=== PATIENT | female | born 1975 | race Caucasian/White ===

== ENCOUNTER → 2021-08-21 08:40 | Outpatient (BNVA) | payer OTHER, SELFPAY | PROVIDERS: Family Provider Nurse Practitioner Family; PCP Nurse Practitioner Family; Visit Provider Internal Medicine | DX: E04.2 Nontoxic multinodular goiter (principal); E05.90 Thyrotoxicosis, unspecified without thyrotoxic crisis or storm | CPT/HCPCS: 83516; 84439; 84443; 84480; 86376; 86800 ==

== ENCOUNTER → 2021-09-01 09:08 | Outpatient (BNVA) | payer OTHER, SELFPAY | PROVIDERS: Family Provider Nurse Practitioner Family; PCP Nurse Practitioner Family; Visit Provider Internal Medicine | DX: E04.2 Nontoxic multinodular goiter (principal); E05.90 Thyrotoxicosis, unspecified without thyrotoxic crisis or storm | CPT/HCPCS: 84439; 84443; 84480 ==

== ENCOUNTER 2021-09-22 10:19 | Outpatient (CLI) | payer OTHER, SELFPAY ==
--- NOTE | 2021-09-21 10:29 | NM_ITS ---
WS: [id number] NUCLEAR MEDICINE THYROID UPTAKE AND SCAN HISTORY: E05.90 - Thyrotoxicosis. COMPARISON: None available. Radionucleotide: 119 uCi Iodine-123 sodium iodide capsule. Oral ingestion. Imaging performed at 24 hours post ingestion of capsule. Marker placed over the chin and suprasternal notch. Heterogeneous radiotracer uptake throughout the thyroid. More focal hyperfunctioning nodule in the lo wer pole of the LEFT thyroid. There is a more hypofunctioning nodule in the mid to lower RIGHT thyroi d. The RIGHT thyroid does appear to extend inferiorly towards the substernal notch. Possible mildly h yperfunctioning nodule in the superior RIGHT pole. Thyroid uptake at 24 hours: 24%. (Normal uptake at 24 hours 10-30%). NM/NM thyroid uptake multi [id number] IMPRESSION: 1. Normal thyroid uptake at 24 hours. 2. Mildly hyperfunctioning nodule inferior pole LEFT thyroid, superior pole RI GHT thyroid and hypofunctioning nodules in the mid to lower pole of the RIGHT t hyroid. Recommend follow-up ultrasound to evaluate the suspected nodules in eac h gland.
== END 2021-09-22 10:20 | disposition home or self-care (01) ==
PROVIDERS: PCP Nurse Practitioner Family; Visit Provider Internal Medicine
DX: E05.90 Thyrotoxicosis, unspecified without thyrotoxic crisis or storm (principal); E04.2 Nontoxic multinodular goiter
CPT/HCPCS: 78014; A9516

== ENCOUNTER 2021-10-02 11:08 | Outpatient (CLI) | payer OTHER, SELFPAY ==
[2021-10-02 12:25] LABS: Free T4 Free Thyroxine 1.82 ng/dL (0.82-1.77); Thyroid Stimulating Hormone 0.01 uIU/mL (0.27-4.20)
[2021-10-03 09:17] LABS: T3 Total 221 ng/dL (76-181)
== END 2021-10-02 11:09 | disposition home or self-care (01) ==
PROVIDERS: PCP Family Medicine; Visit Provider Internal Medicine
DX: E05.90 Thyrotoxicosis, unspecified without thyrotoxic crisis or storm (principal); E04.2 Nontoxic multinodular goiter; E04.9 Nontoxic goiter, unspecified
CPT/HCPCS: 84439; 84443; 84480

== ENCOUNTER 2021-10-24 16:17 | Inpatient (IN) | payer OTHER, SELFPAY ==
[2021-10-18 15:01] VITALS: BMI 33.5
[2021-10-19 11:30] LABS: Adenovirus Not Detected (NOT DETECT); Chlamydia Pneumoniae Not Detected (NOT DETECT); Coronavirus 229E,HKU1,NL63,OC4 Not Detected (NOT DETECT); Human Metapneumovirus Not Detected (NOT DETECT); Human Rhinovirus/Enterovirus Not Detected (NOT DETECT); Influenza A Not Detected (NOT DETECT); Influenza A H1 Not Detected (NOT DETECT); Influenza A H1-2009 Not Detected (NOT DETECT); Influenza A H3 Not Detected (NOT DETECT); Influenza B Not Detected (NOT DETECT); Mycoplasma Pneumoniae Not Detected (NOT DETECT); Parainfluenza Virus Type 1 Not Detected (NOT DETECT); Parainfluenza Virus Type 2 Not Detected (NOT DETECT); Parainfluenza Virus Type 3 Not Detected (NOT DETECT); Parainfluenza Virus Type 4 Not Detected (NOT DETECT); Respiratory Syncytial Virus A Not Detected (NOT DETECT); Respiratory Syncytial Virus B Not Detected (NOT DETECT); SARS-COV-2 Not Detected (NOT DETECT)
[2021-10-24] VITALS (18 sets, daily range): BP systolic 107–153; BP diastolic 63–99; PULSE 61–86; RESP 16–26; TEMP 36.2–37.1; O2SAT 90–99
[2021-10-24] MEDS: sodium chloride 0.9% 1,000 ML 30 ML IV (11:14)
--- NOTE | 2021-10-24 11:51 | W.PM.OPSUD ---
Surgery/Procedure H&P Update DATE OF PROCEDURE: October 24, 2021 DATE H&P PERFORMED: 10/06/21 PRIMARY INDICATION FOR PROCEDURE: Hyperthyroidism PLANNED PROCEDURE: Operation Date: 10/24/21 12:00 Proposed Procedures p Total Thyroidectomy(Not Applicable) - Herve Garner MD Related Problem List Diagnoses (1) Hyperthyroidism:
[2021-10-24] MEDS: triamcinolone 40 mg/mL SDV IM (13:28)
[2021-10-24] MEDS: thrombin 5,000 unit SDV 5000 UNIT XX (13:28)
[2021-10-24] MEDS: ceFAZolin 1,000 mg SDV 1000 MG IRRIGATION (13:32)
--- NOTE | 2021-10-24 13:49 | ANES.PREANE2 ---
Pre-Anesthetic Assessment Height/Weight: Height 1.75 m Weight 102.965 kg Temp Pulse Resp BP Pulse Ox 97.2 F L 65 16 137/87 99 10/24/21 10:53 10/24/21 10:53 10/24/21 10:53 10/24/21 10:53 10/24/21 10:53 Operation Date: 10/24/21 12:00 Proposed Procedures p Total Thyroidectomy(Not Applicable) - Herve Garner MD Familial anesthetic complications: None Was Beta Madelaine taken within 24 hours: Yes Was Clonidine taken within 24 hours: N/A Last intake: Intake Last Liquid Date 10/23/21 Last Liquid Time 23:30 Last Solid Date 10/23/21 Last Solid Time 22:30 Social Tobacco and No alcohol Exam alert, oriented x 3, clear to auscultation bilaterally and regular rate & rhythm Airway Submandibular: within normal limits Cervical ROM: within normal limits Mallampati: Class III Dentition: full Comments: Comments: small mouth opening Pulmonary Chronic Obstructive Pulmonary Disease Metabolic Morbid Obesity and Thyroid Disease (hyper) Anesthetic Plan ASA status: 3 Anesthesia: General Risk of > 500 ml blood loss (7ml/kg in children): No Medications/Allergies Home Medications Medication Instructions Recorded Confirmed Last Taken Type potassium iodide 1 gram/mL oral 2 drp PO TID 10/18/21 10/18/21 10/23/21 23:00 History solution (SSKI) prednisone 20 mg tablet 20 mg PO BID 10/18/21 10/18/21 10/23/21 23:00 History propranolol 10 mg tablet 20 mg PO QID 10/18/21 10/18/21 10/24/21 05:30 History Allergies Allergy/AdvReac Type Severity Reaction Status Date / Time No Known Allergies Allergy Verified 10/17/21 08:43 Current Medications Generic Name Dose Route Start Last Admin Trade Name Freq PRN Reason Stop Dose Admin Sodium Chloride 1,000 mls @ 30 mls/hr 10/24/21 11:15 10/24/21 11:14 Sodium Chloride 0.9% IV 10/25/21 11:14 30 mls/hr .Q24H MEHDI Administration PFSH Anesthesia Medical History FHx: thyroid disease High cholesterol Surgical History H/O shoulder surgery H/O tubal ligation Family History Father Cancer Mother Cancer Social History Smoking and tobacco status: current every day smoker Quit status (tobacco): not considering quitting Second hand smoke exposure: Yes Smoking risk assessment/counseling performed?: Yes Alcohol intake: never Desire information about alcohol rehabilitation?: No Counseling given: No Desire information about substance/drug rehabilitation?: No Counseling given: No Adopted: No Caregiver/support person: No Lives independently: Yes Household members: none Housing: House Marital status: Number of children: 3 Highest education level completed: Some College, No Degree service: No Current occupational status: employed History of recent travel: No Data Anesthesia Cardiac Studies: No Data to Display
[2021-10-24] MEDS: fluorescein 1 mg Strip XX ×2 (14:26→15:21)
[2021-10-24] MEDS: EPINEPHrine 1 mg/mL INJ 5 MG XX ×2 (14:26→15:20)
[2021-10-24] MEDS: neomycin-poly-bacitracin oint 28 gm 1 APPLIC TOPICAL (15:52)
--- NOTE | 2021-10-24 16:26 | PM.OP2 ---
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
--- NOTE | 2021-10-24 16:29 | P.OP_ITS ---
Operative Report Date of procedure: October 24, 2021 Pre-op diagnosis: Toxic Multinodular Goiter with Hyperthyroidism with intolerance of medical therapy Post-op diagnosis: same Post-op diagnosis: Same Post-op findings: Multinodular goiter Procedure done: Total thyroidectomy Implants: None Specimens removed/disposition: Right and Left thyroid lobes Pathology: Right and Left thyroid lobes Surgeon: Herve Garner Anesthesia: General Estimated blood loss (mL): 100 IV fluids (mL): 100 Urine output (mL): 150 Complications: None Findings: Multinodular goiter - Bilateral Intact recurrent laryngeal nerves bilaterally Parathyroid glands X 4 identified and preserved in place Condition: stable Disposition: ICU Brief History: 46 yo wf with a h/o toxic multinodular goiter with hyperthyroidism who has been intolerant of medical therapy and who declines HANNA. The patient desires surgical therapy. Procedure: The patient was identified in the preoperative holding area and was taken to the operating table and placed on the operating table in the supine position. Anesthesia was obtained with general endotracheal anesthesia with the Nirvana nerve monitoring endotracheal tube. A horizontal skin incision was drawn out on the patient's anterior neck 2 fingerbreadths above the sternal notch. The incision thus drawn was injected with local anesthesia and the patient was then prepped and draped in the usual sterile fashion. The incision was then made with a 15 blade and the dissection proceeded into the deep tissues with a combination of electrocautery and blunt dissection. The dissection proceeded down through the subcutaneous fat until the strap muscles were identified. The strap muscles were then divided in the sagittal plane in the avascular midline. The thyroid gland was then exposed and attention was turned to the left thyroid lobe. The Wheatley retractor was placed in the wound and the dissection proceeded in a circumferential fashion around the left thyroid lobe. The thyroid isthmus was dissected off of the trachea and was divided with the harmonic scalpel. The Nirvana nerve monitoring hemostat was used to stimulate the left vagus om the carotid sheath and the circuit was found to be intact. At this point the dissection proceeded in a circumferential fashion and initially inferiorly as the left thyroid lobe was rotated medially exposing the tracheoesophageal groove to the operating surgeon. The thyrothymic horn was dissected off of the thyroid and was reflected inferiorly preserving the inferior parathyroid in place. The recurrent nerve was identified and was t raced superiorly to Wright's ligament. Wright's ligament was dissected then divided with microbipolar cautery and the superior pole vessels were then individually dissected free, clipped with ligaclips and divided. The left Vagus nerve was again stimulated in the carotid sheath and the left recurrent laryngeal nerve circuit was again found to be intact. At this point the left thyroid lobe was removed and attention was turned to the right thyroid lobe where a similar procedure was performed. At this point the wounds were inspected for hemostasis which was found to be adequate. The patient had four parathyroids that were identified and preserved in place. The recurrent laryngeal nerves were identified and preserved in place bilaterally. At the end of the procedure the vagus nerve was stimulated in the right and left carotid sheaths and the circuit was found to be intact bilaterally. At this point a round NING drain was placed in the wound and the wound was closed in layers with interrupted 4-0 and 5-0 Monocryl sutures in the subcutaneous tissues. A subcuticular suture was used to close the skin with 5-0 Monocryl suture. Dermabond was placed on the wound as well as Steri-Strips. At this point the procedure was terminated and control of the patient was returned to anesthesia where she underwent an uneventful reversal of anesthesia and extubation and was taken to the recovery room in stable condition. There were no operative or anesthetic complications
--- NOTE | 2021-10-24 17:00 | ANE.PACU2 ---
Inpatient post-anesthesia follow up: Airway intact: Yes Vital signs: Temperature 98.8 F Pulse Rate 62 Respiratory Rate 19 Blood Pressure 125/81 Pulse Oximetry 92 Oxygen Delivery Me thod Room Air Oxygen Flow Rate 3 Fraction of Inspir ed Oxygen Hydration adequate: Yes Nausea and vomiting: No Pain level: 1 Mental status: Baseline
[2021-10-24 17:11] LABS: Parathyroid Hormone 5.4 pg/mL (15-65)
[2021-10-24 17:16] LABS: Calcium 9.2 mg/dL (8.5-10.5)
[2021-10-24] MEDS: HYDROcodone-acetaminophen 5-325 mg Tablet 1 TAB PO (17:18)
[2021-10-24] MEDS: docusate sodium 100 mg Capsule PO (17:19)
[2021-10-24] MEDS: lactated ringers 1,000 ML 100 ML IV (17:19)
[2021-10-24] MEDS: calcium carb-vit d 500mg-200unit 1 Tablet 1 EACH PO (17:22)
--- NOTE | 2021-10-24 17:46 | PM.CONSULT ---
Providers/Reason For Consult Consulting Physician/Specialty*: Hospitalist Reason for Consult*: Hypocalcemia Attending Physician: Herve Garner MD Primary Care Provider: David Estevez History of Present Illness History of Present Illness Laura Pittman is a 46 year old female status post thyroidectomy for the goiter. Hospital service was consulted for postoperative electrolyte imbalance, low PTH and calcium management. Patient is getting p.o. 3 times daily calcium supplements along vitamin D, ionized calcium 1.1, calcium is 8.6. Patient is not complaining of any new complaints. Very pleasant and cooperative during my evaluation Case discussed with Dr. Barrera Review of Systems Const: Denies: chills Eyes: Denies: change in vision ENMT: Denies: throat pain Card: Denies: chest pain Resp: Denies: dyspnea GI: Denies: abdominal pain : Denies: flank pain Musc: Denies: neck pain Skin/Breast: Reports: skin pain; Denies: skin tenderness, skin swelling or sores Neuro: Denies: headache(s) Psych: Denies: anxiety Endo: Denies: polyuria Praneeth/Lymph: Denies: easy bruising All/Imm: Denies: urticaria Medications/Allergies Home Medications Medication Instructions Recorded Confirmed Last Taken Type potassium iodide 1 gram/mL oral 2 drp PO TID 10/18/21 10/18/21 10/23/21 23:00 History solution (SSKI) prednisone 20 mg tablet 20 mg PO BID 10/18/21 10/18/21 10/23/21 23:00 History propranolol 10 mg tablet 20 mg PO QID 10/18/21 10/18/21 10/24/21 05:30 History Allergies Allergy/AdvReac Type Severity Reaction Status Date / Time No Known Allergies Allergy Verified 10/17/21 08:43 Current Medications Generic Name Dose Route Start Last Admin Trade Name Freq PRN Reason Stop Dose Admin Hydrocodone Bitart/Acetaminophen 1 tab 10/24/21 16:52 10/24/21 17:18 Hydrocodone-Acetaminophen 5-325 Mg Tablet PO 1 tab Q6H PRN Administration MODERATE PAIN Calcium Carbonate 1 each 10/24/21 18:00 10/24/21 17:22 Calcium Carb-Vit D 500mg-200unit 1 Tablet PO 1 each BID MEHDI Administration Docusate Sodium 100 mg 10/24/21 18:00 10/24/21 17:19 Docusate Sodium 100 Mg Capsule PO 100 mg BID MEHID Administration Lactated Ringer's 1,000 mls @ 100 mls/hr 10/24/21 16:52 10/24/21 17:19 Lactated Ringers IV 100 mls/hr .Q10H MEHDI Administration PFSH Acute PFSH: Medical History FHx: thyroid disease High cholesterol Surgical History H/O shoulder surgery H/O tubal ligation Family History Father Cancer Mother Cancer Social History Smoking and tobacco status: current every day smoker Quit status (tobacco): not considering quitting Second hand smoke exposure: Yes Smoking risk assessment/counseling performed?: Yes Alcohol intake: never Desire information about alcohol rehabilitation?: No Counseling given: No Desire information about substance/drug rehabilitation?: No Counseling given: No Adopted: No Caregiver/support person: No Lives independently: Yes Household members: none Housing: House Marital status: Number of children: 3 Highest education level completed: Some College, No Degree service: No Current occupational status: employed History of recent travel: No Vitals/I&O/Wt Last Vital Signs Temp 98 F 10/24/21 16:36 Pulse 63 10/24/21 17:34 Resp 19 H 10/24/21 17:30 BP 133/81 10/24/21 17:30 Pulse Ox 94 10/24/21 17:30 10/24/21 10/24/21 10/24/21 06:59 14:59 22:59 Intake Total 60 / 60 1999 / 2059 Output Total 400 / 400 Balance 60 / 60 1599 / 1660 Physical Exam Narrative: Patient is very pleasant cooperative Saturating well on room air Hemodynamically stable No signs of hypocalcemia Nonfocal neuro exam S1, S2 Saturating well on room air Abdomen is soft Nonfocal neuro exam Urinary Catheter Management: Bonilla: Cath Placed During This Visit: yes Urinary Catheter Date of Insertion: 10/24/21 Urinary Catheter Time of Insertion: 12:30 A&P Assessment and plan (1) Parathyroid disorder: Status: Acute (2) Hyperthyroidism: Status: Acute (3) Goiter: Status: Acute (4) Multiple thyroid nodules: Status: Acute Plan Status post thyroidectomy Parathyroid disorder after thyroidectomy Calcium 8.6 PTH 3.6 We will check calcium level in the evening as well Patient has received calcium this morning No signs of hypocalcemia on clinical exam She is hemodynamically stable She is able to swallow food, She was asking if she is able to lay flat, I requested patient to ask this question to her ENT surgeon, Patient is getting calcitriol, vitamin D 2, calcium carbonate, We can discontinue IV fluids Check albumin level Discharge planning as per ENT Consult Attestations Medical Necessity Statement: Needs calcium monitoring after thyroidectomy/parathyroid disorder Time Spent in Patient Care: 25mins Coding Level of Care Code Acute Molding Plasterer for Chg Fwd Diagnoses Parathyroid disorder E21.5 Hyperthyroidism E05.90 Goiter E04.9 Multiple thyroid nodules E04.2
[2021-10-24] MEDS: calcium carbonate 500 mg Chew Tablet 1000 MG PO ×2 (18:11→21:30)
[2021-10-24] MEDS: ergocalciferol (vitamin D2) 50,000 Unit Capsule 50000 UNIT PO (18:11)
[2021-10-24] MEDS: calcium gluconate 0.9% NaCL 1 GM/50 ML PREMIX IV (18:12)
[2021-10-24] MEDS: calcitriol 0.25 mcg Capsule 0.5 MCG PO ×2 (18:25→21:30)
--- NOTE | 2021-10-24 18:30 | PC.NURSE ---
Shift Note: Pt alert, oriented and very pleasant. She ate evening meal without difficulty. She is coughing up phlegm. She is now on room air , sats greater than 93%. No bleeding at incision site. Tex drain has scant drainage. She c/o of left shoulder pain, hydrocodone admin. No further c/o of pain. PTH and calcium (PTH) levels called to Dr Garner. Calcium and vitamin D supllements ordered and admin.. Bonilla removed immediately after surgery before ICU. No urination at this time. Frequent safety and comfort rounds continue. Orders and/or nursing care completed as indicated. Patient monitored for response to intervention and treatment(s). Education provided includes Calcitrol, Calcium gluconate, tums, calcium levels. Patient and/or veterans service representative verbalized understanding of plan of care and medications. Will continue to monitor.
--- NOTE | 2021-10-24 19:07 | PC.NURSE ---
Ulysses curiel to LAMONT Zelaya.
[2021-10-24] MEDS: ceFAZolin 1,000 MG in sodium chloride 0.9% (plus) 50 ML 100 MG IV (21:30)
[2021-10-24] MEDS: famotidine 20 mg/2 mL INJ IVP (21:30)
[2021-10-25] VITALS (36 sets, daily range): BP systolic 104–162; BP diastolic 57–106; PULSE 59–93; RESP 14–22; TEMP 36.8; O2SAT 90–98
[2021-10-25] MEDS: HYDROcodone-acetaminophen 5-325 mg Tablet 1 TAB PO ×4 (00:15→18:56)
[2021-10-25] MEDS: calcium carbonate 500 mg Chew Tablet 1000 MG PO ×6 (01:55→21:45)
[2021-10-25] MEDS: lactated ringers 1,000 ML 100 ML IV (01:57)
[2021-10-25] MEDS: ceFAZolin 1,000 MG in sodium chloride 0.9% (plus) 50 ML 100 MG IV (04:37)
--- NOTE | 2021-10-25 04:40 | PM.PN ---
Subjective Subjective: 46 yo wf who is POD #1 s/p total thyroidectomy for toxic multinodular goiter with intolerance of medical therapy and refusal of HANNA who reports some periincisional pain and pain with swallowing. The patient is o/w without c/o. Medications: Reviewed: Yes Vitals/I&O/Wt Last Vital Signs Temp 98.8 F 10/24/21 19:00 Pulse 62 10/25/21 00:30 Resp 19 H 10/25/21 00:30 BP 125/81 10/25/21 00:30 Pulse Ox 92 10/25/21 00:30 10/24/21 10/24/21 10/25/21 14:59 22:59 06:59 Intake Total 60 / 60 2850 / 2910 1163.333 / 4073.333 Output Total 400 / 400 Balance 60 / 60 2450 / 2510 1163.333 / 3673.333 Physical Exam Const: COMMON NORMALS: no acute distress and patient oriented x3 ORIENTATION/CONSCIOUSNESS: Yes awake HENMT: COMMON NORMALS: normocephalic, atraumatic, hearing grossly normal bilaterally and Normal external nose present HEAD & SCALP: normocephalic and atraumatic FACE & SINUS: normal facial exam and other (Negative Chvostek's sign bilaterally. ) NOSE: Normal external nose present Eye: COMMON NORMALS: conjunctivae normal and no scleral icterus CONJUNCTIVA: Yes conjunctivae normal Neck/C-Spine: COMMON NORMALS: no lymphadenopathy and supple GENERAL: Yes trachea midline and Yes other (Anterior neck wound without swelling or erythema.) Lymph: LYMPHATIC: no lymphadenopathy noted Resp: COMMON NORMALS: normal respiratory effort, No retractions and No use of accessory muscles Cardio: COMMON NORMALS: regular rate, regular rhythm and No murmurs present (Cardio) RATE: regular rate RHYTHM: regular rhythm GI: COMMON NORMALS: Normal to inspection, nondistended, normoactive bowel sounds present Extremity: COMMON NORMALS: normal to inspection Neuro: COMMON NORMALS: patient oriented x3 and CN's II-XII intact bilaterally SENSORIUM/ORIENTATION: Yes other (The patient's voice is unchanged from preop. ) Urinary Catheter Management: Bonilla: Cath Placed During This Visit: yes Urinary Catheter Date of Insertion: 10/24/21 Urinary Catheter Time of Insertion: 12:30 Data Other Labs: Serum Calcium and PTH levels were reviewed from last evening. A&P Assessment and plan (1) Hyperthyroidism: Impression: Doing well s/p total thyroidectomy Plan: Will start the patient on Synthroid at discharge Status: Acute (2) Goiter: See the above Status: Acute (3) Multiple thyroid nodules: Impression: Stable as above Plan: I will make further recommendations once the final path report is available. Status: Acute (4) Parathyroid disorder: Impression: Decreased post op serum PTH with normal serum Calcium level Plan: - The patient was started on Calcitriol 0.5mcg po BID last and Tums 1000mg po Q4 hours - We will check serum Calcium and Albumin levels BID until stable - I have consulted the Hospitalist team to helf follow the patient's serum Calcium Status: Acute Plan The patient is an impatient to observe her airway and stablize her post op serum Calcium levels. Attestations Medical Necessity Statement*: The patient is admitted for monitorin of her airway and post op serum calcium/parathyroid function/levels Coding Level of Care Code Acute Renal Dietitian for g Fwd Diagnoses Hyperthyroidism E05.90 Goiter E04.9 Multiple thyroid nodules E04.2 Parathyroid disorder E21.5
[2021-10-25 05:29] LABS: Magnesium 1.8 mg/dL (1.7-2.3)
[2021-10-25 05:31] LABS: Ionized Calcium 1.1 mmol/L (1.1-1.4)
[2021-10-25 05:37] LABS: Calcium 8.6 mg/dL (8.5-10.5)
[2021-10-25 05:44] LABS: Parathyroid Hormone 3.6 pg/mL (15-65)
[2021-10-25 07:40] LABS: Glucose Point of Care 107 mg/dL (70-110)
[2021-10-25] MEDS: famotidine 20 mg/2 mL INJ IVP ×2 (08:07→19:35)
[2021-10-25] MEDS: docusate sodium 100 mg Capsule PO ×2 (08:08→17:15)
[2021-10-25] MEDS: calcitriol 0.25 mcg Capsule 0.5 MCG PO ×3 (08:10→21:45)
--- NOTE | 2021-10-25 09:24 | P.PN_ITS ---
Subjective Subjective: No overnight events Vitals/I&O/Wt Last Vital Signs Temp 98.3 F 10/25/21 08:00 Pulse 78 10/25/21 08:30 Resp 17 10/25/21 08:30 BP 123/67 10/25/21 08:30 Pulse Ox 98 10/25/21 08:30 10/24/21 10/25/21 10/25/21 22:59 06:59 14:59 Intake Total 2850 / 2910 1163.333 / 4073.333 236 / 236 Output Total 400 / 400 30 / 430 Balance 2450 / 2510 1133.333 / 3643.333 236 / 236 Physical Exam Narrative: No signs of hypocalcemia Nonfocal neuro exam Hemodynamically stable S1, S2 Abdomen is soft Euvolemic Drain in place with serosanguineous discharge No active swelling around the surgical site Urinary Catheter Management: Bonilla: Cath Placed During This Visit: yes Urinary Catheter Date of Insertion: 10/24/21 Urinary Catheter Time of Insertion: 12:30 A&P Assessment and plan (1) Parathyroid disorder: Status: Acute (2) Hyperthyroidism: Status: Acute (3) Goiter: Status: Acute (4) Multiple thyroid nodules: Status: Acute Plan Postop day 1 Calcium 8.6 Recheck calcium and PTH level in the evening, Continue calcium, vitamin D supplementation No active signs of hypocalcemia noted on clinical exam Updated ICU nurse to keep an eye for signs of hypocalcemia, tetany, muscle spasm, QT prolongation etc. Attestations Medical Necessity Statement*: As per ENT Time Spent in Patient Care: 20mins Coding Level of Care Code Acute Sql Server Dba Developer for [facility] Fwd Diagnoses Parathyroid disorder E21.5 Hyperthyroidism E05.90 Goiter E04.9 Multiple thyroid nodules E04.2
--- NOTE | 2021-10-25 10:44 | PC.CHAP ---
Pastoral Care Encounter/Spiritual Assessment Type of Contact [] Declined sap security architect visit [] Patient/Family/Request visit [] Outpatient visit [] Follow-up visit [] Physician referral [] Code/Alert [x] Routine visit [] Staff referral [] Actively dying [] Patient sleeping [] Family support [] [] Out of room [] Palliative care [] [] Receiving care in room [] Pre-surgical visit [] Trauma [] Long length of stay [x] ICU visit [] Other: Relational/Emotional Strength [] Patient feels connected with others/family/visitors/staff [] Distress [] Loneliness/isolation [] Abandonment Spirituality of Patient [] Person of [place] [] Attends Nondenominational of their [place] [] Believes in Prayer [] Reads Bible or Adventism materials [] There are Spiritual issues to be addressed Measurement Supervisor Interventions [x] Prayer [x] Active listening [x] Non-anxious presence [x] Spiritual/emotional support [] Crisis/trauma care [] Spiritual counseling [] Bereavement support [] Provided bereavement packet [] Provided Bible/devotional materials [] Provided toy/stuffed animal, coloring book to patient or family member [] Provided Communion [] Anointing/Jean [] Salvation [x] Completed spiritual assessment [] Other: Impact on Illness or Injury [] Angry [] Fearful [] Anxious [] Often cries [] Exhaustion [] Unable to work [] Unable to attend jew [] Unable to walk/stand [] Unable to read [] Unable to drive [] Unable to eat/drink [] Unable to sleep [] Unable to be with family [] Patient intubated [] Other: Summary patient all smiles... feeling so positive regarding surgery and recovery Time spent with patient 5 min
[2021-10-25 17:28] LABS: Calcium 8.1 mg/dL (8.5-10.5)
[2021-10-25 18:20] LABS: Parathyroid Hormone 3.1 pg/mL (15-65)
[2021-10-26] VITALS (36 sets, daily range): BP systolic 105–159; BP diastolic 60–90; PULSE 57–96; RESP 10–25; TEMP 36.6–36.8; O2SAT 90–96
[2021-10-26] MEDS: calcium carbonate 500 mg Chew Tablet 1000 MG PO ×6 (03:55→21:00)
[2021-10-26] MEDS: HYDROcodone-acetaminophen 5-325 mg Tablet 1 TAB PO ×3 (03:57→17:21)
--- NOTE | 2021-10-26 03:58 | P.PN_ITS ---
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 The patient's post op PTH and Calcium have been decreased and she has been placed on po Calcitriol and Calcium. We have been monitoring her serum calcium levels BID. The patient is without perioral numbness/tingling, is taking po well, and is o/w without c/o. Medications: Reviewed: Yes Vitals/I&O/Wt Last Vital Signs Temp 98.3 F 10/25/21 19:00 Pulse 71 10/26/21 02:00 Resp 13 10/26/21 02:00 BP 159/87 10/26/21 00:00 Pulse Ox 92 10/26/21 02:00 10/25/21 10/25/21 10/26/21 14:59 22:59 06:59 Intake Total 473 / 473 600 / 1073 Output Total 40 / 40 Balance 473 / 473 560 / 1033 Physical Exam Const: COMMON NORMALS: no acute distress and patient oriented x3 GENERAL APPEARANCE: cooperative, comfortable and well developed HENMT: COMMON NORMALS: normocephalic and atraumatic HEAD & SCALP: normocephalic and atraumatic FACE & SINUS: normal facial exam Eye: COMMON NORMALS: EOMs intact bilaterally, conjunctivae normal and no scleral icterus CONJUNCTIVA: Yes conjunctivae normal Neck/C-Spine: COMMON NORMALS: no lymphadenopathy GENERAL: Yes trachea midline THYROID: other (Anterior neck incision clean, intact, without erythema or swelling. ) CERVICAL SPINE: Yes cervical ROM normal Lymph: LYMPHATIC: no lymphadenopathy noted Resp: COMMON NORMALS: normal respiratory effort, No retractions and No use of accessory muscles Cardio: COMMON NORMALS: regular rate, regular rhythm and No murmurs present (Cardio) RATE: regular rate RHYTHM: regular rhythm GI: COMMON NORMALS: Normal to inspection, nondistended, normoactive bowel sounds present Extremity: COMMON NORMALS: normal to inspection Neuro: COMMON NORMALS: patient oriented x3 Urinary Catheter Management: Bonilla: Cath Placed During This Visit: yes Urinary Catheter Date of Insertion: 10/24/21 Urinary Catheter Time of Insertion: 12:30 Data Attestation for Other Data: I personally reviewed and interpreted the following: Other data: Serum Calcium and PTH levels A&P Assessment and plan (1) Parathyroid disorder: Impression: Hypoparathyroidism, most likely temporary Plan: - Continue oral Calcitriol and Calcium - Consider IV supplementation - Will discharge when stable Status: Acute (2) Hyperthyroidism: Impression: Resolved following total thyroidectomy Plan: Will start oral Synthroid at discharge Status: Acute (3) Goiter: Impression: Resolved Status: Acute (4) Multiple thyroid nodules: Impression: Resolved Status: Acute Attestations Medical Necessity Statement*: The patient is admitted for monitoring of her post thyroidectomy serum calcium levels. Coding Level of Care Code Acute Night Custodian for Chg Fwd Diagnoses Parathyroid disorder E21.5 Hyperthyroidism E05.90 Goiter E04.9 Multiple thyroid nodules E04.2
[2021-10-26 04:57] LABS: Alanine Aminotransferase 13 U/L (0-33); Albumin Level 3.5 g/dL (3.5-5.2); Alkaline Phosphatase 73 IU/L (35-105); Aspartate Amino Transferase 15 U/L (0-32); Blood Urea Nitrogen 14 mg/dL (6-20); Calcium 7.7 mg/dL (8.5-10.5); Carbon Dioxide 27 mmol/L (22-29); Chloride 101 mmol/L (98-107); Globulin 2.8 g/dL (1.3-4.6); Glomerular Filtration Rate 131.7 mL/min (90-130); Glucose 94 mg/dL (65-115); Osmolality Calculated 288 mOsm/kg (285-295); Sodium 139 mmol/L (136-145); Total Bilirubin 0.3 mg/dL (0.15-1.2); Total Protein 6.3 g/dL (6.6-8.7)
--- NOTE | 2021-10-26 05:09 | PC.NURSE ---
Reported ionized calcium result to Dr. Garner.
[2021-10-26] MEDS: famotidine 20 mg/2 mL INJ IVP ×2 (08:13→20:51)
[2021-10-26] MEDS: docusate sodium 100 mg Capsule PO ×2 (08:13→17:21)
[2021-10-26] MEDS: calcium gluconate 0.9% NaCL 1 GM/50 ML PREMIX IV ×2 (08:14→09:16)
[2021-10-26] MEDS: calcitriol 0.25 mcg Capsule 0.5 MCG PO ×3 (09:18→20:52)
--- NOTE | 2021-10-26 09:28 | P.PN_ITS ---
Subjective Subjective: Low calcium noted, will give IV calcium gluconate Patient still has drain in place No QT prolongation No hemodynamic instability No signs of hypocalcemia Calcium level check twice daily Vitals/I&O/Wt Last Vital Signs Temp 98.3 F 10/25/21 19:00 Pulse 66 10/26/21 06:00 Resp 18 10/26/21 06:00 BP 121/73 10/26/21 06:00 Pulse Ox 92 10/26/21 06:00 10/25/21 10/26/21 10/26/21 22:59 06:59 14:59 Intake Total 600 / 1073 300 / 1373 50 / 50 Output Total 40 / 40 30 / 70 Balance 560 / 1033 270 / 1303 50 / 50 Physical Exam Narrative: Patient sitting comfortably in her bed Surgical scar without any complications Drain still in place with mild serosanguineous discharge No perioral numbness No signs of tetany Normal hemodynamics Nonfocal neuro exam Patient looks euvolemic Very pleasant cooperative Abdomen soft S1, S2 Urinary Catheter Management: Bonilla: Cath Placed During This Visit: yes Urinary Catheter Date of Insertion: 10/24/21 Urinary Catheter Time of Insertion: 12:30 Data : 10/26/21 04:28 A&P Assessment and plan (1) Parathyroid disorder: Status: Acute (2) Hyperthyroidism: Status: Acute (3) Goiter: Status: Acute (4) Multiple thyroid nodules: Status: Acute (5) Hypocalcemia: Status: Acute Plan Hypocalcemia, low PTH, Electrolyte level check twice a day Patient is eager and anxious to return home Her calcium is low today, will give IV calcium No signs of QT prolongation tetany or perioral numbness Status post thyroidectomy, patient is not considering radioactive iodine for now Biopsy is not showing malignancy We will follow up with ENT Full code Regular diet Patient will be discharged once electrolytes are stable Attestations Medical Necessity Statement*: As per ENT Time Spent in Patient Care: 20mins Coding Level of Care Code Acute Curriculum Advisory Teacher for Maren Diego Diagnoses Parathyroid disorder E21.5 Hyperthyroidism E05.90 Goiter E04.9 Multiple thyroid nodules E04.2 Hypocalcemia E83.51
--- NOTE | 2021-10-26 09:31 | ECG_ITS ---
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 Measurements Intervals Newcomb Rate: 65 P: 48 NM: 152 QRS: -13 QRSD: 102 T: 23 QT: 391 QTc: 408 Interpretive Statements SINUS RHYTHM WITH SINUS ARRHYTHMIA POSSIBLE LEFT ATRIAL ENLARGEMENT [-0.1mV P-WAVE IN V1/V2] INCOMPLETE RIGHT BUNDLE BRANCH BLOCK [90+ ms QRS DURATION, TERMINAL R IN V1/V2, 40+ ms S IN I/aVL/V4/V5/V6] POSSIBLE LEFT VENTRICULAR HYPERTROPHY [VOLTAGE CRITERIA PLUS LAE OR QRS WIDENING] No previous ECG available for comparison Electronically Signed On 10-26-2021 18:00:16 CDT by Nahun Rehman M.D. [id number]
--- NOTE | 2021-10-26 17:50 | NUR.SHIFT ---
Shift Note Frequent safety and comfort rounds continue. nursing care completed as indicated. Patient monitored for response medication Education provided includes . Will continue to monitor.
--- NOTE | 2021-10-26 18:36 | PC.NURSE ---
DR Garner here aware of ca
--- NOTE | 2021-10-26 22:40 | PC.NURSE ---
Pt complains of something poking out of my butt after I pooped, but it popped back in and it doesn't hurt. Pt denies history of hemorrhoids, but asked if there could be tubing in her bowel movement. I have assured her that no tubing from surgery would be present in her bowels.
[2021-10-27] VITALS (21 sets, daily range): BP systolic 110–125; BP diastolic 65–90; PULSE 61–78; RESP 14–21; TEMP 36.6–37.2; O2SAT 92–97
[2021-10-27] MEDS: calcium carbonate 500 mg Chew Tablet 1000 MG PO ×6 (01:14→21:05)
--- NOTE | 2021-10-27 03:56 | PC.NURSE ---
Pt refuses pain medications, stating that she does not like to take pills. Coughing and deep breathing encouraged, and fine crackles did clear afterwards.
[2021-10-27 05:14] LABS: Ionized Calcium 0.9 mmol/L (1.1-1.4)
--- NOTE | 2021-10-27 05:15 | PM.HP ---
Providers/Chief Complaint Admitting Physician: Herve Garner MD Primary Care Provider: David Estevez Chief Complaint: Hyperthyroidism. History of Present Illness Laura Pittman is a 46 year old female with a h/o toxic multinodular goiter who is intolerant of medical therapy and who declines HANNA who desires surgical therapy. Review of Systems General: Reports: 10 or more systems reviewed and unremarkable except in HPI and below Medications/Allergies Home Medications Medication Instructions Recorded Confirmed Last Taken Type potassium iodide 1 gram/mL oral 2 drp PO TID 10/18/21 10/18/21 10/23/21 23:00 History solution (SSKI) prednisone 20 mg tablet 20 mg PO BID 10/18/21 10/18/21 10/23/21 23:00 History propranolol 10 mg tablet 20 mg PO QID 10/18/21 10/18/21 10/24/21 05:30 History Allergies Allergy/AdvReac Type Severity Reaction Status Date / Time No Known Allergies Allergy Verified 10/17/21 08:43 PFSH Acute PFSH: Medical History FHx: thyroid disease High cholesterol Surgical History H/O shoulder surgery H/O tubal ligation Family History Father Cancer Mother Cancer Social History Smoking and tobacco status: current every day smoker Quit status (tobacco): not considering quitting Second hand smoke exposure: Yes Smoking risk assessment/counseling performed?: Yes Alcohol intake: never Desire information about alcohol rehabilitation?: No Counseling given: No Desire information about substance/drug rehabilitation?: No Counseling given: No Adopted: No Caregiver/support person: No Lives independently: Yes Household members: none Housing: House Marital status: Number of children: 3 Highest education level completed: Some College, No Degree service: No Current occupational status: employed History of recent travel: No Vitals/I&O/Wt Last Vital Signs Temp 99 F 10/27/21 03:54 Pulse 77 10/27/21 04:30 Resp 14 10/27/21 04:30 BP 125/65 10/27/21 04:00 Pulse Ox 94 10/27/21 04:30 10/26/21 10/26/21 10/27/21 14:59 22:59 06:59 Intake Total 650 / 650 350 / 1000 Output Total 450 / 450 20 / 470 Balance 650 / 650 -100 / 550 -20 / 530 Physical Exam Const: COMMON NORMALS: no acute distress, patient oriented x3, healthy appearing and alert HENMT: COMMON NORMALS: normocephalic, atraumatic, hearing grossly normal bilaterally and external ears normal HEAD & SCALP: normal to inspection FACE & SINUS: normal facial exam NOSE: Normal external nose present MOUTH: Normal oral and palatal mucosa present, lip normal and tongue normal THROAT: posterior oropharynx normal Eye: COMMON NORMALS: EOMs intact bilaterally and conjunctivae normal Neck/C-Spine: COMMON NORMALS: no lymphadenopathy and supple GENERAL: Yes trachea midline Lymph: LYMPHATIC: no lymphadenopathy noted Resp: COMMON NORMALS: normal respiratory effort, No use of accessory muscles and clear to auscultation bilaterally Cardio: COMMON NORMALS: regular rate, regular rhythm and No murmurs present (Cardio) GI: COMMON NORMALS: Normal to inspection, nondistended, normoactive bowel sounds present Extremity: COMMON NORMALS: normal to inspection Neuro: COMMON NORMALS: patient oriented x3, CN's II-XII intact bilaterally, moves all extremities, no sensory deficits noted, deep tendon reflexes 2+ bilaterally and gait normal SENSORIUM/ORIENTATION: Yes oriented to person, Yes oriented to place and Yes oriented to time Psych: COMMON NORMALS: mental status grossly normal Skin: COMMON NORMALS: no rashes or lesions noted Urinary Catheter Management: Bonilla: Cath Placed During This Visit: yes Urinary Catheter Date of Insertion: 10/24/21 Urinary Catheter Time of Insertion: 12:30 Data : 10/26/21 04:28 A&P Assessment and plan (1) Hyperthyroidism: Impression: 46 yo wf with a h/o toxic multinodular goiter who desires surgical therapy Plan: Total thyroidectomy under general anesthesia Status: Acute (2) Goiter: Status: Acute (3) Multiple thyroid nodules: Status: Acute Attestations Medical Necessity Statement*: The patient will require inpatient care to monitor airway and post op calcium/PTH levels. Coding Level of Care Code Acute Deck Lid Fitter for [facility] Fwd Diagnoses Hyperthyroidism E05.90 Goiter E04.9 Multiple thyroid nodules E04.2
--- NOTE | 2021-10-27 05:17 | PC.NURSE ---
Dr. Garner at bedside, NING drain removed.
--- NOTE | 2021-10-27 05:23 | PM.PN ---
Subjective Subjective: 46 yo wf who is POD #3 s/p total thyroidectomy for toxic multinodular goiter. The patient's post op PTH and serum calciums have been low. She received one dose of IV Calcium yesterday. The patient is without c/o. She has minimal pain and no facial tingling. Vitals/I&O/Wt Last Vital Signs Temp 99 F 10/27/21 03:54 Pulse 77 10/27/21 04:30 Resp 14 10/27/21 04:30 BP 125/65 10/27/21 04:00 Pulse Ox 94 10/27/21 04:30 10/26/21 10/26/21 10/27/21 14:59 22:59 06:59 Intake Total 650 / 650 350 / 1000 Output Total 450 / 450 20 / 470 Balance 650 / 650 -100 / 550 -20 / 530 Physical Exam Const: COMMON NORMALS: no acute distress and patient oriented x3 HENMT: COMMON NORMALS: normocephalic, atraumatic and Normal external nose present HEAD & SCALP: normocephalic and atraumatic FACE & SINUS: normal facial exam NOSE: Normal external nose present Eye: COMMON NORMALS: EOMs intact bilaterally, conjunctivae normal and no scleral icterus CONJUNCTIVA: Yes conjunctivae normal Neck/C-Spine: COMMON NORMALS: no lymphadenopathy Lymph: LYMPHATIC: no lymphadenopathy noted Resp: COMMON NORMALS: normal respiratory effort, No retractions, No use of accessory muscles and clear to auscultation bilaterally AUSCULTATION: clear to auscultation bilaterally Cardio: COMMON NORMALS: regular rate, regular rhythm and No murmurs present (Cardio) RATE: regular rate RHYTHM: regular rhythm GI: COMMON NORMALS: Normal to inspection, nondistended, normoactive bowel sounds present Extremity: COMMON NORMALS: normal to inspection Neuro: COMMON NORMALS: patient oriented x3 and CN's II-XII intact bilaterally Urinary Catheter Management: Bonilla: Cath Placed During This Visit: yes Urinary Catheter Date of Insertion: 10/24/21 Urinary Catheter Time of Insertion: 12:30 Data : 10/26/21 04:28 Attestation for Other Data: I personally reviewed and interpreted the following: Other data: Serum Calcium Levels Path Report: No malignancy; no parathyroid glands noted in the specimen A&P Assessment and plan (1) Hypocalcemia: Impression: Continued hypocalcemia - first dose of IV calcium given yesterday Plan: - Continue po Calcitriol (0.5mcg po BID) and po calcium - IV Calcium as needed - Will discharge when stable Status: Acute (2) Parathyroid disorder: See above Status: Acute (3) Hyperthyroidism: Resolved Status: Acute (4) Goiter: Resolved Status: Acute Attestations Medical Necessity Statement*: The patient requires admission until serum calcium stable. Procedures Procedure Narrative The patient's NING drain was removed today. Coding Level of Care Code Acute Project Planner for Chg Fwd Diagnoses Hypocalcemia E83.51 Parathyroid disorder E21.5 Hyperthyroidism E05.90 Goiter E04.9
[2021-10-27 05:40] LABS: Calcium 7.7 mg/dL (8.5-10.5)
[2021-10-27 05:44] LABS: Parathyroid Hormone 3.8 pg/mL (15-65)
[2021-10-27] MEDS: famotidine 20 mg/2 mL INJ IVP ×2 (07:03→20:50)
[2021-10-27] MEDS: calcium gluconate 0.9% NaCL 1 GM/50 ML PREMIX IV ×3 (08:49→18:11)
[2021-10-27] MEDS: calcitriol 0.25 mcg Capsule 0.5 MCG PO ×3 (08:49→21:03)
[2021-10-27] MEDS: neomycin-poly-bacitracin oint 28 gm 1 APPLIC TOPICAL ×3 (08:50→20:49)
--- NOTE | 2021-10-27 11:10 | P.PN_ITS ---
Subjective Subjective: Patient has been getting IV calcium There is plan for discharge later today I have scheduled her for another 1 g of calcium gluconate at 4 PM She has been prescribed medications for discharge No active symptoms Vitals/I&O/Wt Last Vital Signs Temp 97.8 F 10/27/21 07:30 Pulse 61 10/27/21 07:30 Resp 15 10/27/21 07:30 BP 118/90 10/27/21 07:30 Pulse Ox 95 10/27/21 07:30 10/26/21 10/27/21 10/27/21 22:59 06:59 14:59 Intake Total 350 / 1000 800 / 1800 240 / 240 Output Total 450 / 450 20 / 470 Balance -100 / 550 780 / 1330 240 / 240 Physical Exam Narrative: Very pleasant cooperative Drain has been removed Nonfocal neuro exam S1, S2 No signs of hypocalcemia Abdomen is soft Saturating well on room air Urinary Catheter Management: Bonilla: Cath Placed During This Visit: yes Urinary Catheter Date of Insertion: 10/24/21 Urinary Catheter Time of Insertion: 12:30 Data : 10/26/21 04:28 A&P Assessment and plan (1) Hypocalcemia: Status: Acute (2) Parathyroid disorder: Status: Acute (3) Hyperthyroidism: Status: Acute (4) Goiter: Status: Acute (5) Multiple thyroid nodules: Status: Acute Plan Hypocalcemia related to parathyroid disorder after thyroidectomy Calcium has been given via IV route despite p.o. regimen postoperatively Another dose of calcium at 4 PM today Plan for discharge later today as per my discussion with the nursing staff Drain has been removed, she is able to tolerate diet Afebrile No signs of hypocalcemia PT is 3.8 today Ionized calcium 0.9, she received IV calcium this morning as well Attestations Medical Necessity Statement*: Per ENT Time Spent in Patient Care: 20 Coding Level of Care Code Acute Middle School Science Teacher for g Fwd Diagnoses Hypocalcemia E83.51 Parathyroid disorder E21.5 Hyperthyroidism E05.90 Goiter E04.9 Multiple thyroid nodules E04.2
--- NOTE | 2021-10-27 11:47 | PC.NURSE ---
Dr Howard wants patient to start receiving Forteo while in the hospital. Our inpatient pharmacy does not carry it, nurse has attempted to call multiple other pharmacies which do not carry it either. Nurse attempted to call in medication to the patient's preferred pharmacy to have it ordered, but they are not able to order it. THis patient's insurance requires pre authorization to be done, and then the insurance will allow a contracted pharmacy (undetermined at this time) to fill the script. Nurse Filled out preauthorization request at [facility], and is waiting on a response. Reference ID for prior auth is [id number].
[2021-10-27] MEDS: docusate sodium 100 mg Capsule PO (17:01)
--- NOTE | 2021-10-27 17:45 | P.PN_ITS ---
Subjective Subjective: 46 yo wf s/p total thyroidectomy with post op hypocalcemia. The patient wants to go home and she wants to smoke. The patient has minimal pain and is taking po well. Vitals/I&O/Wt Last Vital Signs Temp 98.2 F 10/27/21 16:57 Pulse 68 10/27/21 16:57 Resp 18 10/27/21 16:57 BP 120/70 10/27/21 16:57 Pulse Ox 96 10/27/21 16:57 10/27/21 10/27/21 10/27/21 06:59 14:59 22:59 Intake Total 800 / 1800 720 / 720 100 / 820 Output Total 20 / 470 Balance 780 / 1330 720 / 720 100 / 820 Physical Exam Const: COMMON NORMALS: no acute distress and patient oriented x3 Neck/C-Spine: COMMON NORMALS: no lymphadenopathy and supple CERVICAL SPINE: Yes other (Neck wound clean without erythema.) Lymph: LYMPHATIC: no lymphadenopathy noted Resp: COMMON NORMALS: No retractions and No use of accessory muscles Neuro: COMMON NORMALS: patient oriented x3 Urinary Catheter Management: Bonilla: Cath Placed During This Visit: yes Urinary Catheter Date of Insertion: 10/24/21 Urinary Catheter Time of Insertion: 12:30 Data : 10/26/21 04:28 A&P Assessment and plan (1) Hypocalcemia: Impression: Post op hypocalcemia - most likely temporary. The patient is trying to leave AMA. Plan: - I recommend that the patient stay until her calcium is stablized - We are trying to get a prescription for Forteo injections to stabilize her calcium - I wrote the following prescriptions for her just in case she decides to leave AMA: [place] (5/325) tabs: take 1-2 tabs po Q5 hours prn pain, #25, NR Synthroid (100mcg) tabs: take one tab po QD, #30, RX5 Calcitriol (0.5mcg) tabs: take 1 tab po BID, #60, RX5 She is to take OTC Tums 2 po Q4 hours Status: Acute (2) Parathyroid disorder: Status: Acute (3) Goiter: Status: Acute Attestations Medical Necessity Statement*: The patient needs to admitted until her serum calcium level is stable. Coding Level of Care Code Acute Computer Sciences Professor for g Fwd Diagnoses Hypocalcemia E83.51 Parathyroid disorder E21.5 Goiter E04.9
[2021-10-27] MEDS: levothyroxine 100 mcg Tablet PO (18:10)
--- NOTE | 2021-10-27 18:22 | PC.NURSE ---
SHift SUmmary: Uneventful shift. PAtient sat up on the side of the bed or in the chair all day. Was occasionally up in her room. Calcium levels remain low despite replacement. NING drain was removed today. Incision site on anterior neck is unremarkable. Plan is reassessment of Calcium tommorow.
[2021-10-28] VITALS (18 sets, daily range): BP systolic 116–134; BP diastolic 62–78; PULSE 64–86; RESP 14–20; TEMP 36.7–37.1; O2SAT 92–99
[2021-10-28] MEDS: calcium carbonate 500 mg Chew Tablet 1000 MG PO ×6 (03:37→23:05)
--- NOTE | 2021-10-28 05:54 | PC.NURSE ---
Pt refuses medication for nausea, prefers to wait it out.
[2021-10-28] MEDS: levothyroxine 100 mcg Tablet PO (06:04)
[2021-10-28 07:41] LABS: Calcium 8.3 mg/dL (8.5-10.5)
[2021-10-28 07:48] LABS: Parathyroid Hormone 3.2 pg/mL (15-65)
[2021-10-28] MEDS: calcitriol 0.25 mcg Capsule 0.5 MCG PO ×3 (08:19→20:27)
[2021-10-28] MEDS: docusate sodium 100 mg Capsule PO (08:19)
[2021-10-28] MEDS: famotidine 20 mg/2 mL INJ IVP ×2 (08:19→20:27)
[2021-10-28] MEDS: neomycin-poly-bacitracin oint 28 gm 1 APPLIC TOPICAL ×3 (08:21→21:00)
--- NOTE | 2021-10-28 08:30 | P.PN_ITS ---
Subjective Subjective: 46 yo wf who is POD #4 s/p total thyroidectomy who has experienced post op hypocalcemia. The patient is without c/o today. She denies any numbness or tingling or cramping. Vitals/I&O/Wt Last Vital Signs Temp 98.0 F 10/28/21 04:00 Pulse 64 10/28/21 06:00 Resp 17 10/28/21 06:00 BP 122/70 10/28/21 04:00 Pulse Ox 92 10/28/21 06:00 10/27/21 10/28/21 10/28/21 22:59 06:59 14:59 Intake Total 1400 / 2120 300 / 2420 Balance 1400 / 2120 300 / 2420 Physical Exam Const: COMMON NORMALS: no acute distress and patient oriented x3 HENMT: COMMON NORMALS: normocephalic, atraumatic and Normal external nose present HEAD & SCALP: normocephalic and atraumatic FACE & SINUS: normal facial exam NOSE: Normal external nose present Eye: COMMON NORMALS: EOMs intact bilaterally, conjunctivae normal and no scleral icterus CONJUNCTIVA: Yes conjunctivae normal Neck/C-Spine: COMMON NORMALS: no lymphadenopathy and supple Lymph: LYMPHATIC: no lymphadenopathy noted Resp: COMMON NORMALS: normal respiratory effort, No retractions and No use of accessory muscles Cardio: COMMON NORMALS: regular rate, regular rhythm and No murmurs present (Cardio) RATE: regular rate RHYTHM: regular rhythm GI: COMMON NORMALS: Normal to inspection, nondistended, normoactive bowel sounds present Extremity: COMMON NORMALS: normal to inspection Neuro: COMMON NORMALS: patient oriented x3 Urinary Catheter Management: Bonilla: Cath Placed During This Visit: yes Urinary Catheter Date of Insertion: 10/24/21 Urinary Catheter Time of Insertion: 12:30 Data : 10/26/21 04:28 Attestation for Other Data: I personally reviewed and interpreted the following: Other data: Serum calcium and PTH hormone levels A&P Assessment and plan (1) Hypocalcemia: Impression: POD #4 s/p total thyroidectomy with slowly improving serum calcium level on po Calcitriol and calcium Plan: - Continue observation: I anticipate d/c in one to two days - Continue po Calcitriol and Calcium - We are trying to obtain SQ Forteo injections as a temporary measure until her own PTH levels Status: Acute (2) Parathyroid disorder: Status: Acute (3) Goiter: Status: Acute (4) Multiple thyroid nodules: Status: Acute Attestations Medical Necessity Statement*: The patient requires inpatient care until her serum calcium normalizes Coding Level of Care Code Acute Director Of Industrial Relations for Chg Fwd Diagnoses Hypocalcemia E83.51 Parathyroid disorder E21.5 Goiter E04.9 Multiple thyroid nodules E04.2
--- NOTE | 2021-10-28 08:37 | P.PN_ITS ---
Vitals/I&O/Wt Last Vital Signs Temp 98.0 F 10/28/21 04:00 Pulse 64 10/28/21 06:00 Resp 17 10/28/21 06:00 BP 122/70 10/28/21 04:00 Pulse Ox 92 10/28/21 06:00 10/27/21 10/28/21 10/28/21 22:59 06:59 14:59 Intake Total 1400 / 2120 300 / 2420 Balance 1400 / 2120 300 / 2420 Physical Exam Urinary Catheter Management: Bonilla: Cath Placed During This Visit: yes Urinary Catheter Date of Insertion: 10/24/21 Urinary Catheter Time of Insertion: 12:30 Data : 10/26/21 04:28 Coding Level of Care Code Acute Analysis Consultant for Maren Diego
--- NOTE | 2021-10-28 09:36 | P.PN_ITS ---
Subjective Subjective: Asymptomatic Calcium is 8.3, ionized calcium is 1 Plan to discharge her tomorrow, Dr. Barrera has seen her today as well Plan to give her IV calcium today Vitals/I&O/Wt Last Vital Signs Temp 98.0 F 10/28/21 04:00 Pulse 76 10/28/21 08:30 Resp 20 H 10/28/21 08:30 BP 122/70 10/28/21 04:00 Pulse Ox 92 10/28/21 06:00 10/27/21 10/28/21 10/28/21 22:59 06:59 14:59 Intake Total 1400 / 2120 300 / 2420 300 / 300 Balance 1400 / 2120 300 / 2420 300 / 300 Physical Exam Narrative: No signs of hypoglycemia Patient is sitting comfortably in her bed Mild skin laxity around the surgical site otherwise no active drainage or significant swelling She is able to swallow without any signs of aspiration S1, S2 No perioral numbness tetany or neurological symptoms saturating well on room air Urinary Catheter Management: Bonilla: Cath Placed During This Visit: yes Urinary Catheter Date of Insertion: 10/24/21 Urinary Catheter Time of Insertion: 12:30 Data : 10/26/21 04:28 A&P Assessment and plan (1) Hypocalcemia: Status: Acute (2) Parathyroid disorder: Status: Acute (3) Hyperthyroidism: Status: Acute (4) Goiter: Status: Acute (5) Multiple thyroid nodules: Status: Acute Plan Plan to give her another dose of IV calcium today check calcium in the evening Continue p.o. calcium supplementation along IV Plan to discharge her tomorrow as per ENT recommendations No signs of hypocalcemia, no signs of QT prolongation Hemodynamically stable Attestations Medical Necessity Statement*: 15mins Coding Level of Care Code Acute Dust Collector Attendant for Chg Fwd Diagnoses Hypocalcemia E83.51 Parathyroid disorder E21.5 Hyperthyroidism E05.90 Goiter E04.9 Multiple thyroid nodules E04.2
[2021-10-28] MEDS: calcium gluconate 0.9% NaCL 1 GM/50 ML PREMIX IV ×3 (10:57→16:26)
[2021-10-29] VITALS (8 sets, daily range): BP systolic 114–137; BP diastolic 67–83; PULSE 60–78; RESP 14–18; TEMP 36.4–36.9; O2SAT 95–98
[2021-10-29] MEDS: calcium carbonate 500 mg Chew Tablet 1000 MG PO ×6 (02:12→21:16)
[2021-10-29] MEDS: levothyroxine 100 mcg Tablet PO (05:52)
[2021-10-29 06:14] LABS: Calcium 8.2 mg/dL (8.5-10.5)
[2021-10-29 06:21] LABS: Parathyroid Hormone 2.7 pg/mL (15-65)
--- NOTE | 2021-10-29 07:07 | P.PN_ITS ---
Subjective Subjective: 46 yo wf who is POD #5 s/p total thyroidectomy who has post op hypocalcemia. The patient is without c/o this morning. She is taking po well, and denies any perioral tingling or numbness or cramping. Vitals/I&O/Wt Last Vital Signs Temp 97.5 F L 10/29/21 03:08 Pulse 74 10/29/21 06:00 Resp 18 10/29/21 06:00 BP 118/72 10/29/21 03:08 Pulse Ox 95 10/29/21 06:00 10/28/21 10/29/21 10/29/21 22:59 06:59 14:59 Intake Total 400 / 1050 550 / 1600 Balance 400 / 1050 550 / 1600 Physical Exam Const: COMMON NORMALS: average body habitus, patient oriented x3, alert and well nourished HENMT: COMMON NORMALS: normocephalic, atraumatic, external ears normal and Normal external nose present HEAD & SCALP: normocephalic and atraumatic FACE & SINUS: normal facial exam NOSE: Normal external nose present EXT ERNAL EAR: Yes external ears normal Eye: COMMON NORMALS: conjunctivae normal and no scleral icterus CONJUNCTIVA: Yes conjunctivae normal Neck/C-Spine: COMMON NORMALS: no lymphadenopathy and supple THYROID: other (Neck wound without erythema or swelling. ) Lymph: LYMPHATIC: no lymphadenopathy noted Resp: COMMON NORMALS: normal respiratory effort and clear to auscultation bilaterally AUSCULTATION: clear to auscultation bilaterally Cardio: COMMON NORMALS: regular rate, regular rhythm and No murmurs present (Cardio) RATE: regular rate RHYTHM: regular rhythm GI: COMMON NORMALS: Normal to inspection, nondistended, normoactive bowel sounds present Extremity: COMMON NORMALS: normal to inspection Neuro: COMMON NORMALS: patient oriented x3 SENSORIUM/ORIENTATION: Yes alert Urinary Catheter Management: Bonilla: Cath Placed During This Visit: yes Urinary Catheter Date of Insertion: 10/24/21 Urinary Catheter Time of Insertion: 12:30 Data : 10/26/21 04:28 Other Labs: Ionized Serum Calcium Level = 1.0 A&P Assessment and plan (1) Hypocalcemia: Impression: 46 yo wf who is POD #5 s/p total thyroidectomy with post op hypocalcemia. The patient is stable, but mildly hypocalcemic on po Calcitriol and calcium. Plan: - D/C to home - Continue Calcitriol and Calcium - [place] as previously prescribed - There is a prescription for Forteo injections pending insurance approval. Hope to start this in the near future. - The patient is to f/u in Dr. Garner's office in one week. She is to f/u for in structions once she has possession of her Forteo - She is to go to the ER for evaluation for any noted perioral numbness or tingling, or other related symptoms. 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
[2021-10-29] MEDS: calcitriol 0.25 mcg Capsule 0.5 MCG PO ×3 (07:48→21:16)
[2021-10-29] MEDS: famotidine 20 mg/2 mL INJ IVP ×2 (07:49→19:40)
[2021-10-29] MEDS: calcium gluconate 0.9% NaCL 1 GM/50 ML PREMIX IV ×3 (07:49→20:49)
[2021-10-29] MEDS: neomycin-poly-bacitracin oint 28 gm 1 APPLIC TOPICAL ×3 (08:11→21:50)
--- NOTE | 2021-10-29 11:01 | PM.PN ---
Subjective Subjective: Patient is still hypocalcemic, she will not be able to go home today, transfer out of ICU Vitals/I&O/Wt Last Vital Signs Temp 97.7 F 10/29/21 08:00 Pulse 60 10/29/21 08:00 Resp 14 10/29/21 08:00 BP 132/68 10/29/21 08:00 Pulse Ox 96 10/29/21 08:00 10/28/21 10/29/21 10/29/21 22:59 06:59 14:59 Intake Total 400 / 1050 550 / 1600 150 / 150 Balance 400 / 1050 550 / 1600 150 / 150 Physical Exam Narrative: Asymptomatic Nonfocal neuro exam Saturating well In Good spirits Nonfocal neuro exam S1, S2 No audible stridor or wheezing Urinary Catheter Management: Bonilla: Cath Placed During This Visit: yes Urinary Catheter Date of Insertion: 10/24/21 Urinary Catheter Time of Insertion: 12:30 Data : 10/26/21 04:28 A&P Assessment and plan (1) Hypocalcemia: Status: Acute (2) Parathyroid disorder: Status: Acute (3) Hyperthyroidism: Status: Acute (4) Goiter: Status: Acute (5) Multiple thyroid nodules: Status: Acute Plan Patient not ready to be discharged Hypocalcemia after thyroid surgery PTH is low No sign of malignancy as per the biopsy Continue IV calcium replenishment She is also on p.o. 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
--- NOTE | 2021-10-29 12:57 | PC.NURSE ---
Report given to LAMONT Grimaldo.
[2021-10-29] MEDS: docusate sodium 100 mg Capsule PO (17:49)
--- NOTE | 2021-10-29 18:02 | ECG_ITS ---
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 Measurements Intervals [place] Rate: 69 P: 53 MI: 161 QRS: -3 QRSD: 93 T: 31 QT: 390 QTc: 418 Interpretive Statements SINUS RHYTHM MINIMAL VOLTAGE CRITERIA FOR LVH, CONSIDER NORMAL VARIANT [MEETS CRITERIA IN ONE OF: R(aVL), S(V1), R(V5), R(V5/V6)+S(V1)] Compared to ECG 10/26/2021 10:50:12 Sinus arrhythmia no longer present Incomplete right bundle-branch block no longer present Electronically Signed On 10-30-2021 9:00:52 CDT by Nahun Rehman M.D. [id number]
[2021-10-29 19:02] LABS: Calcium 7.5 mg/dL (8.5-10.5)
--- NOTE | 2021-10-29 19:02 | PC.NURSE ---
Shift Note: Pt up ad nico in room and hospital. No c/o of pain. Incision well approximated, no drainage noted. Pt has been applying the antibiotic ointment. She stated she was feeling her hand 'cramp' while she was trying to hold her phone and her leg fell funny this evening. Stat calcium labs, EKG and Calcium IV ordered. EKG showed Normal sinus rhythm an improvement from previous EKG. Waiting on insurance approval for Forteo and medication available to discharge. Frequent safety and comfort rounds continue. Orders and/or nursing care completed as indicated. Patient monitored for response to intervention and treatment(s). Education provided includes calcitrol, calcium gluconate. Patient verbalized understanding of ongoing plan of care, medications and discharge delays. Will continue to monitor.
[2021-10-30] VITALS: BP 120/70; PULSE 67; RESP 18; TEMP 36.9; O2SAT 94
[2021-10-30] MEDS: calcium carbonate 500 mg Chew Tablet 1000 MG PO ×3 (00:53→11:54)
[2021-10-30 04:00] VITALS: BP 110/78; PULSE 67; RESP 14; TEMP 37.2; O2SAT 92
[2021-10-30 04:30] LABS: Ionized Calcium 1.1 mmol/L (1.1-1.4)
--- NOTE | 2021-10-30 05:12 | P.PN_ITS ---
Subjective Subjective: 46 yo wf who is POD #6 s/p total thyroidectomy. She developed hand cramps yesterday that responded to IV Calcium. No other c/o. Vitals/I&O/Wt Last Vital Signs Temp 98.9 F 10/30/21 04:00 Pulse 67 10/30/21 04:00 Resp 14 10/30/21 04:00 BP 110/78 10/30/21 04:00 Pulse Ox 92 10/30/21 04:00 10/29/21 10/29/21 10/30/21 14:59 22:59 06:59 Intake Total 150 / 150 600 / 750 50 / 800 Balance 150 / 150 600 / 750 50 / 800 Physical Exam Const: COMMON NORMALS: no acute distress and patient oriented x3 HENMT: COMMON NORMALS: normocephalic and atraumatic HEAD & SCALP: normoce phalic and atraumatic Resp: COMMON NORMALS: normal respiratory effort, No retractions and No use of accessory muscles Cardio: COMMON NORMALS: regular rate, regular rhythm and S1 normal heart sound present RATE: regular rate RHYTHM: regular rhythm HEART SOUNDS: S1 normal heart sound present GI: COMMON NORMALS: Normal to inspection, nondistended, normoactive bowel sounds present Extremity: COMMON NORMALS: normal to inspection Neuro: COMMON NORMALS: patient oriented x3 and CN's II-XII intact bilaterally Urinary Catheter Management: Bonilla: Cath Placed During This Visit: yes Urinary Catheter Date of Insertion: 10/24/21 Urinary Catheter Time of Insertion: 12:30 Data : 10/26/21 04:28 Attestation for Other Data: I personally reviewed and interpreted the following: Other data: Ionized Calcium levels A&P Assessment and plan (1) Hypocalcemia: Impression: POD #6 s/p total thyroidectomy with post op hypocalcemia - stable Plan: - Admission until can start Forteo - Continue po Calcitriol and po Calcium - IV Calcium as needed - BID monitoring of serum caclium - Will d/c when calcium stablized Status: Acute (2) Parathyroid disorder: Status: Acute (3) Goiter: Status: Acute Attestations Medical Necessity Statement*: The patient requires admission until serum calcium stablized Coding Level of Care Code 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
[2021-10-30 05:27] LABS: Parathyroid Hormone 3.9 pg/mL (15-65)
[2021-10-30] MEDS: levothyroxine 100 mcg Tablet PO (05:53)
[2021-10-30 08:00] VITALS: BP 110/78; PULSE 67; RESP 14; O2SAT 92
[2021-10-30] MEDS: calcitriol 0.25 mcg Capsule 0.5 MCG PO (09:02)
[2021-10-30] MEDS: famotidine 20 mg/2 mL INJ IVP (09:02)
[2021-10-30] MEDS: docusate sodium 100 mg Capsule PO (09:03)
[2021-10-30] MEDS: neomycin-poly-bacitracin oint 28 gm 1 APPLIC TOPICAL (09:10)
--- NOTE | 2021-10-30 10:39 | PC.CHAP ---
Pastoral Care Encounter/Spiritual Assessment Type of Contact [] Declined winding department supervisor visit [] Patient/Family/Request visit [] Outpatient visit [] Follow-up visit [] Physician referral [] Code/Alert [x] Routine visit [] Staff referral [] Actively dying [] Patient sleeping [] Family support [] [] Out of room [] Palliative care [] [] Receiving care in room [] Pre-surgical visit [] Trauma [] Long length of stay [x] ICU visit [] Other: Relational/Emotional Strength [] Patient feels connected with others/family/visitors/staff [] Distress [] Loneliness/isolation [] Abandonment Spirituality of Patient [x] Person of [place] [] Attends Pentecostal of their [place] [] Believes in Prayer [] Reads Bible or Protestant materials [] There are Spiritual issues to be addressed Nurse Specialist Interventions [x] Prayer [x] Active listening [x] Non-anxious presence [x] Spiritual/emotional support [] Crisis/trauma care [] Spiritual counseling [] Bereavement support [] Provided bereavement packet [] Provided Bible/devotional materials [] Provided toy/stuffed animal, coloring book to patient or family member [] Provided Communion [] Anointing/[place] [] Salvation [x] Completed spiritual assessment [] Other: Impact on Illness or Injury [] Angry [] Fearful [] Anxious [] Often cries [] Exhaustion [] Unable to work [] Unable to attend yarsanism [] Unable to walk/stand [] Unable to read [] Unable to drive [] Unable to eat/drink [] Unable to sleep [] Unable to be with family [] Patient intubated [] Other: Summary delightful patient... being discharged today.... Time spent with patient 20 min
--- NOTE | 2021-10-30 11:47 | PM.MISC ---
Miscellaneous Note Note: Dr. Garner asked me to discharge order for her, final discharge summary will be dictated by Dr. Barrera ENT surgeon He has already given a written prescription to the patient regarding her outpatient discharge medications I have arranged for close follow-up with Dr. Middleton tomorrow morning for her PTH injection prescription This morning calcium is 9 and is calcium 1.1 No acute symptoms He did experience mild spasm of her hand at the time of blood draw however no active complaints at the time of my evaluation Case was discussed with Dr. Garner, who is in agreement to discharge her with close endocrinology follow-up, patient will see ENT within a week
[2021-10-30 11:59] VITALS: BP 122/88; PULSE 68; RESP 16; TEMP 36.8; O2SAT 96
[2021-10-30 12:00] VITALS: BP 122/88; PULSE 68; RESP 16; TEMP 36.8; O2SAT 96
== END 2021-10-30 12:10 | disposition home or self-care (01) | DRG 627 ==
LOC: ICU 17:51
PROVIDERS: Internal Medicine; Admitting Provider Specialist; PCP Family Medicine; Visit Provider Specialist
PROC: 0GTH0ZZ Resection of Right Thyroid Gland Lobe, Open Approach (ICD-10-PCS; CPT 60240; principal; 2021-10-24 12:00)
DX: E05.20 Thyrotoxicosis with toxic multinodular goiter without thyrotoxic crisis or storm (principal); F17.210 Nicotine dependence, cigarettes, uncomplicated; E89.2 Postprocedural hypoparathyroidism; E83.51 Hypocalcemia
CPT/HCPCS: 12345; 36415; 36416; 36600; 51702; 80053; 82310; 82330; 82962; 83735; 83970; 87635; 88307; 93005; 94664; J0171; J0330; J0610; J0690; J1100; J1170; J1200; J2250; J2370; J2405; J2704; J3010; J3301; J3490; J7030

== ENCOUNTER → 2021-11-01 10:02 | Outpatient (BNVA) | payer OTHER, SELFPAY | PROVIDERS: PCP Family Medicine; Visit Provider Internal Medicine | DX: E04.2 Nontoxic multinodular goiter (principal); E05.90 Thyrotoxicosis, unspecified without thyrotoxic crisis or storm; E06.3 Autoimmune thyroiditis; E21.5 Disorder of parathyroid gland, unspecified | CPT/HCPCS: 82310; 83735; 83970; 84439; 84480 ==

== ENCOUNTER → 2021-11-13 09:05 | Outpatient (BNVA) | payer OTHER, SELFPAY | PROVIDERS: PCP Family Medicine; Visit Provider Internal Medicine | DX: E06.3 Autoimmune thyroiditis (principal); E20.9 Hypoparathyroidism, unspecified; E89.0 Postprocedural hypothyroidism | CPT/HCPCS: 82310; 83970 ==

== ENCOUNTER → 2021-11-27 08:47 | Outpatient (BNVA) | payer OTHER, SELFPAY | PROVIDERS: PCP Family Medicine; Visit Provider Internal Medicine | DX: E06.3 Autoimmune thyroiditis (principal); E20.9 Hypoparathyroidism, unspecified; E89.0 Postprocedural hypothyroidism | CPT/HCPCS: 82310; 83970; 84439; 84443 ==

== ENCOUNTER → 2021-12-07 09:28 | Outpatient (BNVA) | payer OTHER, SELFPAY | PROVIDERS: PCP Family Medicine; Visit Provider Internal Medicine | DX: E06.3 Autoimmune thyroiditis (principal); E20.9 Hypoparathyroidism, unspecified; E89.0 Postprocedural hypothyroidism | CPT/HCPCS: 80053; 82310; 83970; 84439; 84443 ==

== ENCOUNTER → 2021-12-19 10:00 | Outpatient (BNVA) | payer OTHER, SELFPAY | PROVIDERS: PCP Family Medicine; Visit Provider Internal Medicine | DX: E20.9 Hypoparathyroidism, unspecified (principal); E06.3 Autoimmune thyroiditis; E89.0 Postprocedural hypothyroidism | CPT/HCPCS: 82310; 83970; 84439; 84443 ==

== ENCOUNTER → 2024-12-07 10:46 | Outpatient (BNVA) | payer BC, SELFPAY | PROVIDERS: PCP Family Medicine; Referring Provider Registered Nurse; Visit Provider Internal Medicine Rheumatology | DX: M25.50 Pain in unspecified joint (principal); M06.9 Rheumatoid arthritis, unspecified | CPT/HCPCS: 36415; 80076; 82306; 82565; 85025; 85651; 86140; 86480; 86704; 86803; 87340 ==